=== PATIENT | male | born 1995 | race Caucasian/White ===

== ENCOUNTER 2020-07-07 09:16 | Outpatient (CLI) | payer OTHER | END 2020-07-07 09:17 | disposition home or self-care (01) | LOC: SCSRAD 09:16 | PROVIDERS: ATTEND Family Medicine | DX: U07.1 COVID-19 (principal); J12.82 Pneumonia due to coronavirus disease 2019; R06.02 Shortness of breath | CPT/HCPCS: 71046 ==

== ENCOUNTER 2020-07-20 10:23 | Outpatient (CLI) | payer OTHER | END 2020-07-20 10:24 | disposition home or self-care (01) | LOC: BICRAD 10:23 | PROVIDERS: ATTEND Family Medicine | DX: U07.1 COVID-19 (principal); J12.82 Pneumonia due to coronavirus disease 2019 | CPT/HCPCS: 71046 ==